=== PATIENT | female | born 1985 | race Caucasian/White ===

== ENCOUNTER 2018-10-29 02:44 | Emergency (ER) | payer SELFPAY ==
[~2018-10-29] VITALS: Ht 175.3 cm; Wt 122.5 kg
[2018-10-29 03:22] LABS: Basophils # (auto) 0.1 uL; Basophils % (auto) 0.7 % (0.0-2.0); Eosinophils # (auto) 0.2 uL; Eosinophils % (auto) 1.2 % (0.0-7.0); Hematocrit 43.7 % (36.0-46.0); Hemoglobin 14.9 g/dL (12.2-16.2); Lymphocytes # (auto) 2.4 uL; Lymphocytes % (auto) 17.3 % (10.0-50.0); Mean Corpuscular Hemoglobin 30.8 pg (28.0-32.0); Mean Corpuscular Volume 90.4 fL (80.0-100.0); Monocytes # (auto) 0.7 uL; Monocytes % (auto) 4.8 % (0.0-12.0); Neutrophils # (auto) 10.6 uL; Nucleated Red Blood Cells % 0.1 %; Platelet Count (auto) 305 10^3/uL (140-450); Red Blood Cells 4.83 10^6/uL (4.0-5.20); Red Cell Distribution Width 13.1 % (11.8-14.3); White Blood Cell 13.9 10^3/uL (4.4-10.8)
[2018-10-29 03:38] LABS: Albumin 3.2 g/dL (3.4-5.0); BUN/Creatinine Ratio 14.7; Calcium 9.3 mg/dL (8.5-10.1)
[2018-10-29 03:39] LABS: Bilirubin, Total 0.5 mg/dL (0.2-1.0); Total Protein 7.6 g/dL (6.4-8.2)
[2018-10-29] MEDS ORDERED: SODIUM CHLORIDE 0.9% 1,000 ML IV ONE (09:07)
[2018-10-29 10:06] LABS: Urine Bacteria FEW /hpf (None Seen); Urine Blood Negative /uL (Negative); Urine Hyaline Cast FEW /lpf (0 - 2); Urine Mucus FEW (None Seen); Urine Specific Gravity 1.025 (1.001-1.035); Urine WBC 29 /hpf (0 - 5)
[2018-10-29] MEDS ORDERED: ACETAMINOPHEN 650 mg PER 20 mL UD PO ONE (10:15)
[2018-10-29 10:24] VITALS: BP 109/72
== END 2018-10-29 10:39 | disposition home or self-care (01) ==
LOC: ER 02:48
DX: O21.8 Other vomiting complicating pregnancy (principal); E86.0 Dehydration; Z3A.09 9 weeks gestation of pregnancy
CPT/HCPCS: 36415; 76801; 80053; 81001; 84702; 85025; 96360; 99284; J7030

== ENCOUNTER 2019-01-01 20:55 | Emergency (ER) | payer MEDICAID ==
[~2019-01-01] VITALS: Ht 175.3 cm; Wt 120.2 kg
[2019-01-01 22:04] LABS: Basophils # (auto) 0 uL; Basophils % (auto) 0.5 % (0.0-2.0); Eosinophils # (auto) 0.1 uL; Eosinophils % (auto) 1.1 % (0.0-7.0); Hematocrit 36.6 % (36.0-46.0); Hemoglobin 12.8 g/dL (12.2-16.2); Lymphocytes # (auto) 1.5 uL; Mean Corpuscular Hgb Conc. 35.1 g/dL (32.0-36.0); Mean Corpuscular Volume 91.4 fL (80.0-100.0); Monocytes # (auto) 0.5 uL; Monocytes % (auto) 5.7 % (0.0-12.0); Neutrophils % (auto) 76.7 % (37.0-80.0); Nucleated Red Blood Cells % 0.1 %; Platelet Count (auto) 246 10^3/uL (140-450); Red Cell Distribution Width 13.3 % (11.8-14.3); White Blood Cell 9.2 10^3/uL (4.4-10.8)
[2019-01-01 22:23] LABS: Albumin 2.8 g/dL (3.4-5.0); BUN/Creatinine Ratio 11.7; Calcium 9.1 mg/dL (8.5-10.1); Potassium 3.8 mmol/L (3.5-5.1)
[2019-01-01 22:25] LABS: Bilirubin, Total 0.6 mg/dL (0.2-1.0); Total Protein 6.8 g/dL (6.4-8.2)
[2019-01-02 03:08] LABS: Urine Bacteria FEW /hpf (None Seen); Urine Blood Negative /uL (Negative); Urine Mucus MODERATE (None Seen); Urine Specific Gravity 1.022 (1.001-1.035); Urine WBC 3 /hpf (0 - 5)
[2019-01-02 05:32] VITALS: BP 105/65
== END 2019-01-02 05:33 | disposition home or self-care (01) ==
LOC: ER 20:55
DX: O99.612 Diseases of the digestive system complicating pregnancy, second trimester (principal); K42.9 Umbilical hernia without obstruction or gangrene; Z88.8 Allergy status to other drugs, medicaments and biological substances; Z3A.18 18 weeks gestation of pregnancy
CPT/HCPCS: 36415; 76705; 76805; 80053; 81001; 82542; 83690; 84702; 85025